=== PATIENT | male | born 1965 | race Caucasian/White ===

== ENCOUNTER 2019-09-21 00:43 | Inpatient (IN) | payer MEDICAID ==
[~2019-09-21] VITALS: Ht 180.3 cm; Wt 85.2 kg
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
[2019-09-21] MEDS ORDERED: METO25TA35 PO (00:57)
--- NOTE | 2019-09-21 00:59 | NUR ---
MD has been to bedside for eval. EKG at bedside
--- NOTE | 2019-09-21 01:03 | NUR ---
pt is A&O x to situation, is dressed appropriately and answers questions and follows command appropiatley. calm and cooperative
--- NOTE | 2019-09-21 01:15 | NUR ---
report to Lois ROBBINS
[2019-09-21 01:35] LABS: BASOPHILS # (AUTO) 0.03 x10^3/uL (0-0.1); BASOPHILS % (AUTO) 0 % (0-1); EOSINOPHILS % (AUTO) 5 % (1-7); LYMPHOCYTES # (AUTO) 3.63 x10^3/uL (1-3.4); LYMPHOCYTES % (AUTO) 35 % (22-44); MD NO; MEAN CORPUSCULAR HEMOGLOBIN 28.6 pg (27.5-34.5); MEAN CORPUSCULAR HGB CONC 32.9 g/dL (33.2-36.2); MEAN CORPUSCULAR VOLUME 86.9 fL (81-97); MEAN PLATELET VOLUME 7.8 fL (7.4-10.4); MONOCYTES % (AUTO) 8 % (2-9); NEUTROPHILS # (AUTO) 5.57 x10^3/uL (1.8-6.8); NEUTROPHILS % (AUTO) 53 % (42-75); PLATELET COUNT 298 x10^3/uL (130-400); RED CELL DISTRIBUTION WIDTH 15.3 % (9.4-14.8)
[2019-09-21 01:42] LABS: ALANINE AMINOTRANSFERASE 29 U/L (12-78); ALBUMIN 3.4 g/dL (3.4-5.0); ANION GAP 5 mmol/L (5-15); CALCIUM 8.6 mg/dL (8.5-10.1); CHLORIDE 110 mmol/L (98-107); CREATININE 0.89 mg/dL (0.7-1.3)
[2019-09-21 01:47] LABS: ALKALINE PHOSPHATASE 105 U/L (45-117); BILIRUBIN,TOTAL 0.3 mg/dL (0.2-1.0); TOTAL PROTEIN 6.7 g/dL (6.4-8.2)
[2019-09-21 01:54] LABS: TROPONIN I 0.195 ng/mL (0.000-0.045)
[2019-09-21] MEDS ORDERED: HEPARIN 5,000 UNITS/ML, 1ML ONE (02:14)
[2019-09-21] MEDS ORDERED: HEPARIN 25,000 UNITS/250ML PMX 250 ML ONE (02:14)
[2019-09-21] MEDS ORDERED: SODIUM CHLORIDE FLUSH 10ML SYR IVF PRN (02:30)
[2019-09-21] MEDS ORDERED: HEPARIN 25,000 UNITS/250ML PMX 250 ML IV PRN ×2 (02:30→15:00)
[2019-09-21] MEDS ORDERED: HEPARIN 5,000 UNITS/ML, 1ML IV ONE ×2 (02:30→15:00)
--- NOTE | 2019-09-21 02:36 | NUR ---
TASK RN: SECOND PIV ESTABLISHED. HEPARIN INITIATED PER ORDER AND VERIFIED BY ITZEL BRIGHT. PT DENIES CHEST PAIN AT THIS TIME. AWAITING ADMIT
[2019-09-21 03:02] LABS: AMPHETAMINE SCREEN, URINE Negative (Negative); BARBITURATE SCREEN, URINE Negative (Negative); BENZODIAZEPINE SCREEN, URINE Negative (Negative); CANNABINOID SCREEN, URINE Negative (Negative); COCAINE SCREEN, URINE Negative (Negative); METHADONE SCREEN, URINE Negative (Negative); OPIATE SCREEN, URINE Negative (Negative)
--- NOTE | 2019-09-21 03:17 | NUR ---
ADMITTING MD TO BEDSIDE, PT CONVERSING, NO SIGNS OF DISTRESS.
[2019-09-21] MEDS ORDERED: NITROGLYCERIN 0.4 MG/SPRAY SL PRN (03:30)
[2019-09-21] MEDS ORDERED: ZOLPIDEM 5MG TABLET PO PRN (03:30)
[2019-09-21] MEDS ORDERED: NITROGLYCERIN 0.4 MG BOTTLE (25 TABS) SL PRN (03:30)
[2019-09-21] MEDS ORDERED: morphine SULFATE 10 MG/ML, 1ML IV PRN (03:30)
[2019-09-21] MEDS ORDERED: ACETAMINOPHEN 650 MG/20.3 ML UDC PO PRN (03:30)
[2019-09-21] MEDS ORDERED: ONDANSETRON 2MG/ML, 2ML IVPush PRN (03:30)
--- NOTE | 2019-09-21 03:33 | NUR ---
PT PROVIDED WITH PILLOW, HOSPITAL BED ORDERED.
--- NOTE | 2019-09-21 04:09 | NUR ---
PT SLEEPING. Addendum: 09/21/19 at 0409 by MTUTTLE RESPIRATIONS EVEN AND UNLABORED.
[2019-09-21 05:17] LABS: CHOLESTEROL, TOTAL 200 mg/dL (140-239); TRIGLYCERIDES 202 mg/dL (50-200); VLDL CHOLESTEROL 40 mg/dL (0-25)
[2019-09-21 05:20] LABS: CHOL/HDL RATIO 5.9; HDL CHOL % 17 % (26-37); HDL CHOLESTEROL (DIRECT) 34 mg/dL (40-60); LDL CHOLESTEROL,CALCULATED 126 mg/dL (54-169); LDL/HDL RATIO 3.7 (0.5-3.0)
[2019-09-21 05:25] LABS: TROPONIN I 0.261 ng/mL (0.000-0.045)
--- NOTE | 2019-09-21 05:37 | NUR ---
PT AROUSED FROM SLEEP FOR REPEAT EKG. PT STATES HE FEELS TIRED BUT DENIES ANY OTHER COMPLAINTS INCLUDING CHEST PAIN.
--- NOTE | 2019-09-21 05:40 | NUR ---
DR. ALEXANDER MADE AWARE OF PT CONDITION INCLUDING VS, AND LACK OF PT COMPLAINTS, WELL REPEAT EKG PERFORMED THAT WAS UNREMARKABLE TO THE ER MD ROLDAN. NO NEW ORDERS AT THIS TIME. WILL CONTINUE TO MONITOR.
--- NOTE | 2019-09-21 06:45 | NUR ---
PT SLEEPING, RESPIRATIONS EVEN AND UNLABORED. REPORT GIVEN TO ITZEL SHINE.
--- NOTE | 2019-09-21 07:16 | NUR ---
TOOK REPORT FROM NICHOLAS SUNG SLEEPING. RR EVEN AND UNLABORED.
--- NOTE | 2019-09-21 08:10 | NUR ---
EMPTIED URINAL, ECHO IN ROOM
[2019-09-21] MEDS ORDERED: NICOTINE 21 MG/24 HR PATCH.TD24 ONE (08:33)
[2019-09-21] MEDS ORDERED: METOPROLOL TARTRATE 25 MG TAB ONE (08:33)
[2019-09-21] MEDS ORDERED: SODIUM CHLORIDE 0.9% 1,000 ML IV SCH ×2 (08:41→16:19)
[2019-09-21] MEDS: SODIUM CHLORIDE 0.9% 1,000 ML IV SCH ×2 (08:41→15:21)
[2019-09-21] MEDS ORDERED: NICOTINE 21 MG/24 HR PATCH.TD24 TD SCH (09:00)
[2019-09-21] MEDS ORDERED: METOPROLOL TARTRATE 100 MG TAB PO SCH (09:00)
[2019-09-21] MEDS: ASPIRIN 81 MG TABLET EC PO SCH (09:00)
[2019-09-21] MEDS ORDERED: ASPIRIN 81 MG TABLET EC ONE (09:03)
--- NOTE | 2019-09-21 09:12 | NUR ---
ASSUMED CARE OF PT. RPT FROM ITZEL SHINE. PT MEDICATED PER MAY. PT EDUCATED ON PLAN OF CARE. PT VERBALIZED UNDERSTANDING. PT RESTING WITH EYES CLOSED.
--- NOTE | 2019-09-21 10:08 | NUR ---
ANTI XA 0.43. NO CHANGE TO HEPARIN GTT.
--- NOTE | 2019-09-21 11:40 | NUR ---
SPOKE WITH TALITA FROM [employer] ABOUT PT'S PROCEDURE TIME. INFORMED ME THAT THEY WOULD TAKE PT FROM TELE FLOOR. PT CURRENTLY ON TELE HOLD IN ED. ITZEL SOTELO NOTIFIED.
[2019-09-21 12:12] LABS: TROPONIN I 0.384 ng/mL (0.000-0.045)
[2019-09-21] MEDS ORDERED: LORazepam 2 MG/ML, 1ML IV PRN ×5 (13:30)
[2019-09-21 14:27] VITALS: BP 110/72
[2019-09-21] MEDS ORDERED: HEPARIN 5,000 UNITS/ML, 1ML IV PRN (15:00)
[2019-09-21] MEDS ORDERED: BIVALIRUDIN 250 MG ONE (15:29)
[2019-09-21] MEDS ORDERED: MIDAZOLAM 1 MG/ML, 5ML ONE (15:29)
[2019-09-21] MEDS ORDERED: VERAPAMIL 2.5 MG/ML, 2ML ONE (15:29)
[2019-09-21] MEDS ORDERED: FENTANYL PF 100 MCG/2ML ONE (15:29)
[2019-09-21] MEDS ORDERED: LIDOCAINE 2%, 20ML ONE (15:29)
[2019-09-21] MEDS ORDERED: HEPARIN 1,000 UNITS/ML, 10ML ONE (15:29)
--- NOTE | 2019-09-21 15:47 | NUR ---
VIDAL BOO-PT'S SO
[2019-09-21] MEDS ORDERED: BIVALIRUDIN 250 MG in SODIUM CHLORIDE 0.9% 50 ML IV SCH (16:19)
[2019-09-21] MEDS ORDERED: PRASUGREL 10 MG TABLET ONE (16:20)
[2019-09-21 20:21] VITALS: BP 129/80
[2019-09-21] MEDS: METOPROLOL TARTRATE 25 MG TAB PO SCH (20:25)
[2019-09-21] MEDS ORDERED: ATORVASTATIN 80 MG TABLET PO SCH (21:00)
[2019-09-21] MEDS ORDERED: MELATONIN 5 MG TABLET PO PRN (21:00)
[2019-09-22 03:25] VITALS: BP 137/83
[2019-09-22 05:48] LABS: ANION GAP 5 mmol/L (5-15); CALCIUM 8.6 mg/dL (8.5-10.1); CHLORIDE 110 mmol/L (98-107); CREATININE 1.04 mg/dL (0.7-1.3)
[2019-09-22] MEDS ORDERED: ASPIRIN 325 MG TABLET EC PO SCH (06:00)
[2019-09-22] MEDS: ASPIRIN 81 MG TABLET EC PO SCH (06:17)
[2019-09-22] MEDS: METOPROLOL TARTRATE 25 MG TAB PO SCH (07:47)
[2019-09-22 08:35] VITALS: BP 140/80
[2019-09-22] MEDS ORDERED: LISINOPRIL 5 MG TABLET PO SCH (09:00)
[2019-09-22] MEDS ORDERED: PRASUGREL 10 MG TABLET PO SCH (09:00)
[2019-09-22] MEDS ORDERED: MULTIVITAMINS/MINERALS TABLET PO SCH (09:00)
[2019-09-22 12:31] VITALS: BP 138/80
[2019-09-22] MEDS ORDERED: METO-264 PO (12:49)
[2019-09-22] MEDS ORDERED: PRAS10TA4 PO (12:49)
[2019-09-22] MEDS ORDERED: ASPI81TA45 PO (12:49)
[2019-09-22] MEDS ORDERED: ATOR-2 PO (12:49)
[2019-09-22] MEDS ORDERED: LISI5TAB7 PO (12:49)
[2019-09-23] MEDS ORDERED: METOPROLOL SUCCINATE 25 MG TAB.ER.24H PO SCH (06:00)
== END 2019-09-22 15:00 | disposition home or self-care (01) | DRG 247 ==
LOC: ED 01:14 → EDIP 02:10 → 5SO 14:10 → DCLOUNGE 09-22 14:51
PROVIDERS: ADMIT Family Medicine; ATTEND Hospitalist
PROC: 027034Z Dilation of Coronary Artery, One Artery with Drug-eluting Intraluminal Device, Percutaneous Approach (ICD-10-PCS; principal; 2019-09-21)
PROC: 4A023N7 Measurement of Cardiac Sampling and Pressure, Left Heart, Percutaneous Approach (ICD-10-PCS; 2019-09-21)
PROC: B2111ZZ Fluoroscopy of Multiple Coronary Arteries using Low Osmolar Contrast (ICD-10-PCS; 2019-09-21)
PROC: B2151ZZ Fluoroscopy of Left Heart using Low Osmolar Contrast (ICD-10-PCS; 2019-09-21)
DX: I21.4 Non-ST elevation (NSTEMI) myocardial infarction (principal); I25.10 Atherosclerotic heart disease of native coronary artery without angina pectoris; I25.5 Ischemic cardiomyopathy; I25.2 Old myocardial infarction; I10 Essential (primary) hypertension; D72.829 Elevated white blood cell count, unspecified; E78.2 Mixed hyperlipidemia; F10.10 Alcohol abuse, uncomplicated; F17.210 Nicotine dependence, cigarettes, uncomplicated; F22 Delusional disorders; S50.811A Abrasion of right forearm, initial encounter; Z86.74 Personal history of sudden cardiac arrest; X58.XXXA Exposure to other specified factors, initial encounter; Y93.89 Activity, other specified; Y92.89 Other specified places as the place of occurrence of the external cause; Y99.8 Other external cause status
CPT/HCPCS: 36415; 70250; 92920; 93458; 96374; 99285; C9600; J3490; 71045; 80048; 80053; 80061; 80307; 84484; 85025; 85520; 93005; 93306; 99156; 99157; C1769; C1894; G0378; J0583; J1644; J2250; J3010; C1874; C1887; J7030; Q9967

== ENCOUNTER 2020-04-26 06:04 | Observation (INO) | payer MEDICAID, OTHER ==
[~2020-04-26] VITALS: Ht 180.3 cm; Wt 82.5 kg
[~2020-04-26 06:04] MED LIST: ASPI81TA45 PO; ATOR-2 PO; LISI5TAB7 PO; METO-264 PO; METO25TA35 PO; PRAS10TA4 PO
--- NOTE | 2020-04-26 06:10 | NUR ---
MED STUDENT AT BEDSIDE AT THIS TIME, DR SALES TO SEE PT SOON
--- NOTE | 2020-04-26 06:12 | NUR ---
EKG DONE ON ARRIVAL.
--- NOTE | 2020-04-26 06:12 | NUR ---
BLOOD DRAWN AND SENT TO LAB. PT TOLERATED WELL.
--- NOTE | 2020-04-26 06:41 | NUR ---
PATIENT RESTING IN BED, EVEN-UNLABORED RESPIRATIONS NOTED. NO NOTED NEEDS AT THIS TIME. SITTER WITHIN VIEW OF PATIENT. WILL CONTINUE TO MONITOR.
[2020-04-26 06:45] LABS: BASOPHILS % (AUTO) 1 % (0-1); EOSINOPHILS % (AUTO) 2 % (1-7); LYMPHOCYTES % (AUTO) 35 % (22-44); MEAN CORPUSCULAR HGB CONC 32.8 g/dL (33.2-36.2); MEAN PLATELET VOLUME 7.8 fL (7.4-10.4); MONOCYTES % (AUTO) 10 % (2-9); NEUTROPHILS % (AUTO) 52 % (42-75); PLATELET COUNT 264 x10^3/uL (130-400); RED BLOOD COUNT 5.91 x10^6/uL (4.38-5.82); RED CELL DISTRIBUTION WIDTH 14.1 % (9.4-14.8)
[2020-04-26 06:50] LABS: ALBUMIN 3.8 g/dL (3.4-5.0); ANION GAP 5 mmol/L (5-15); CALCIUM 8.9 mg/dL (8.5-10.1); CHLORIDE 106 mmol/L (98-107); CREATININE 1.21 mg/dL (0.7-1.3); MD NO
--- NOTE | 2020-04-26 06:52 | NUR ---
REPORT TO PETTY ROBBINSASSOCIATE ACCOUNTANT OF CARE
[2020-04-26 06:54] LABS: TROPONIN I < 0.015 ng/mL (0.000-0.045)
--- NOTE | 2020-04-26 09:07 | NUR ---
DR GOMEZ BEDSIDE
[2020-04-26] MEDS ORDERED: hydrALAzine 20 MG/ML, 1ML IVPush PRN (09:30)
[2020-04-26] MEDS ORDERED: ACETAMINOPHEN 325 MG TABLET PO PRN (09:30)
[2020-04-26] MEDS ORDERED: ONDANSETRON ODT 4 MG PO PRN (09:30)
[2020-04-26] MEDS ORDERED: BACLOFEN 10 MG TABLET PO PRN (09:30)
[2020-04-26] MEDS ORDERED: GUAIFENESIN/DM 200-20MG, 10ML UDC PO PRN (09:30)
[2020-04-26] MEDS ORDERED: ONDANSETRON 2MG/ML, 2ML IVPush PRN (09:30)
[2020-04-26] MEDS ORDERED: BUTALB/APAP/CAFFEINE 50MG/325MG/40MG PO PRN ×2 (09:30)
[2020-04-26] MEDS ORDERED: ENALAPRILAT 1.25 MG/ML, 2ML IVPush PRN (09:30)
--- NOTE | 2020-04-26 09:34 | NUR ---
REPORT TO ITZEL PASCAL
--- NOTE | 2020-04-26 09:35 | NUR ---
BREAK RN: PT UPRIGHT ON GURNEY AWAKE, COOPERATIVE & ABLE TO CHANGE POSITIONS AD DAVID FOR COMFORT, NAD, COMFORT MEASURES PROVIDED, OFFICER AT BS, CALL LIGHT WITHIN REACH.
[2020-04-26 09:56] VITALS: BP 123/82
[2020-04-26] MEDS: ENOXAPARIN 40 MG/0.4 ML SQ SCH (10:40)
[2020-04-26] MEDS ORDERED: FLU VACC QS2020-21(6MOS UP)/PF 60MCG/0.5 ML SYR IM-VACC ONE (11:00)
[2020-04-26] MEDS ORDERED: NICOTINE 21 MG/24 HR PATCH.TD24 TD ONE (12:00)
[2020-04-26 12:34] VITALS: BP 115/82
[2020-04-26 12:42] LABS: TROPONIN I < 0.015 ng/mL (0.000-0.045)
[2020-04-26 18:41] LABS: TROPONIN I < 0.015 ng/mL (0.000-0.045)
[2020-04-26 19:37] VITALS: BP 130/79
[2020-04-26] MEDS ORDERED: MELATONIN 5 MG TABLET PO SCH (21:00)
[2020-04-27 00:44] VITALS: BP 122/78
[2020-04-27 05:38] LABS: BASOPHILS % (AUTO) 1 % (0-1); EOSINOPHILS % (AUTO) 3 % (1-7); LYMPHOCYTES % (AUTO) 36 % (22-44); MEAN CORPUSCULAR HEMOGLOBIN 28.4 pg (27.5-34.5); MEAN CORPUSCULAR HGB CONC 33.1 g/dL (33.2-36.2); MEAN PLATELET VOLUME 7.8 fL (7.4-10.4); MONOCYTES % (AUTO) 9 % (2-9); NEUTROPHILS % (AUTO) 51 % (42-75); PLATELET COUNT 234 x10^3/uL (130-400); RED BLOOD COUNT 5.86 x10^6/uL (4.38-5.82); RED CELL DISTRIBUTION WIDTH 13.9 % (9.4-14.8)
[2020-04-27 05:39] LABS: MD NO
[2020-04-27 05:40] LABS: ALBUMIN 3.6 g/dL (3.4-5.0); ANION GAP 8 mmol/L (5-15); CALCIUM 8.8 mg/dL (8.5-10.1); CHLORIDE 109 mmol/L (98-107)
[2020-04-27 05:44] LABS: ALANINE AMINOTRANSFERASE 39 U/L (12-78); ALKALINE PHOSPHATASE 87 U/L (45-117); BILIRUBIN,TOTAL 0.7 mg/dL (0.2-1.0); CREATININE 1.16 mg/dL (0.7-1.3); TOTAL PROTEIN 6.8 g/dL (6.4-8.2)
[2020-04-27 06:43] VITALS: BP 127/85
[2020-04-27] MEDS ORDERED: REGADENOSON 0.4 MG/5 ML SYRINGE ONE (08:18)
[2020-04-27] MEDS ORDERED: SENNA/DOCUSATE TABLET PO SCH (09:00)
[2020-04-27] MEDS: ENOXAPARIN 40 MG/0.4 ML SQ SCH (10:36)
[2020-04-27 12:26] VITALS: BP 121/77
== END 2020-04-27 16:07 | disposition home or self-care (01) ==
LOC: ED 06:28 → INTOOBSV 08:20 → EDIP 08:20 → 5SO 10:15
PROVIDERS: ADMIT Family Medicine; ATTEND Family Medicine
DX: R07.89 Other chest pain (principal); F10.10 Alcohol abuse, uncomplicated; F17.200 Nicotine dependence, unspecified, uncomplicated; I25.10 Atherosclerotic heart disease of native coronary artery without angina pectoris; E78.5 Hyperlipidemia, unspecified; I10 Essential (primary) hypertension; F15.10 Other stimulant abuse, uncomplicated; E78.00 Pure hypercholesterolemia, unspecified; I25.5 Ischemic cardiomyopathy; I25.2 Old myocardial infarction; Z95.5 Presence of coronary angioplasty implant and graft; Z88.0 Allergy status to penicillin; Z91.19 Patient's noncompliance with other medical treatment and regimen; Z79.899 Other long term (current) drug therapy; Z86.74 Personal history of sudden cardiac arrest; Z23 Encounter for immunization
CPT/HCPCS: 36415; 71045; 78452; 80048; 80053; 82040; 83735; 84484; 85025; 85379; 90471; 90686; 93005; 93017; 96372; 99285; A9502; G0378; J1650; J2785

== ENCOUNTER 2020-05-09 02:04 | Emergency (ER) | payer MEDICAID, OTHER ==
[~2020-05-09] VITALS: Ht 180.3 cm; Wt 80.0 kg
[2020-05-09 02:22] VITALS: BP 151/102
[2020-05-09] MEDS ORDERED: ASPIRIN 81 MG TABLET CHEW PO ONE (02:30)
[2020-05-09] MEDS ORDERED: PRASUGREL 10 MG TABLET PO ONE (02:30)
[2020-05-09] MEDS ORDERED: LISINOPRIL 5 MG TABLET PO ONE (02:30)
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
[2020-05-09] MEDS ORDERED: METOPROLOL SUCCINATE 50 MG TAB.ER.24H PO ONE (02:40)
[2020-05-09] MEDS ORDERED: ATORVASTATIN 80 MG TABLET ONE (02:57)
[2020-05-09] MEDS ORDERED: LISINOPRIL 5 MG TABLET ONE (02:57)
[2020-05-09] MEDS ORDERED: ASPIRIN 81 MG TABLET CHEW ONE (02:57)
--- NOTE | 2020-05-09 03:15 | NUR ---
discharge instructions reviewed with patient. all questions answered to patients satisfaction. prescription handed to patient. medications patient is supposed to be taking administered to patient. Dr. Sol approved patient to receive this medication and to be discharged without wait time to have VS reassessed. steady gait to lobby. no IV placed during this ER visit. by the time i was done with triaging patient, patient was being discharged. VS within 10 minutes of meds being administered. patient verbalized back that his next doses would be tomorrow as he received his doses today
[2020-05-09] MEDS ORDERED: ATORVASTATIN 80 MG TABLET PO SCH (21:00)
== END 2020-05-09 03:38 ==
LOC: ED 03:02
DX: I10 Essential (primary) hypertension (principal); I25.2 Old myocardial infarction; Z76.0 Encounter for issue of repeat prescription; Z88.0 Allergy status to penicillin; Z87.891 Personal history of nicotine dependence
CPT/HCPCS: 99284